=== PATIENT | female | born 1995 | race Two or more races ===

== ENCOUNTER 2017-09-08 22:35 | Emergency (ER) | payer SELFPAY ==
[2017-09-08 22:41] VITALS: RESP 18; TEMP 98.6
[2017-09-08] MEDS ORDERED: IPRATROPIUM/ALBUTEROL 3 ML DEYVIAL IH ONE (23:01)
--- NOTE | 2017-09-08 23:04 | EDPHY ---
H & P Stated Complaint: c/o cough/cold sx x 7 days, most sx dissipated, cough getting worse Time Seen by Provider: 09/08/17 22:56 HPI/ROS: Chief Complaint: Cough HPI: 21-year-old woman whose had 7 days of cough which is not improving. Patient states that it started as a regular cold with cough, congestion, fevers and chills. Fever. Five days ago. She has had a persistent dry cough since that time. She has been taking [id number] cough medicines without any relief. No recurrent fevers or chills. No nausea or vomiting. Cough is dry nonproductive. No headache. Some nasal congestion. She has also lost her voice. No associated shortness of breath. No abdominal pain. ROS: 10 point Review of Systems is negative except as noted in the HPI. PMH: None Social History: No smoking, occasional alcohol, no recreational drug use Family History: non-contributory Physical Exam: Gen: Awake, Alert, No Distress HEENT: Nose: no rhinorrhea Eyes: PERRLA, EOMI Mouth: Moist mucosa Neck: Supple, no JVD Chest: nontender, no focal rales or rhonchi, prolonged expiratory phase with wheezing associated with dry cough Heart: S1, S2 normal, no murmur Abd: Soft, non-tender, no guarding Back: no CVA tenderness, no midline tenderness Ext: no edema, non-tender Skin: no rash Neuro: CN II-XII intact, Sensation grossly intact, Strength 5/5 in bilateral upper and lower extremities - Medical/Surgical History Hx Asthma: No Hx Chronic Respiratory Disease: No Hx Diabetes: No Hx Cardiac Disease: No Hx Renal Disease: No Hx Cirrhosis: No Hx Alcoholism: No Hx HIV/AIDS: No Hx Splenectomy or Spleen Trauma: No Other PMH: None - Social History Smoking Status: Never smoked Constitutional: Initial Vital Signs Temperature (C) 37 C 09/08/17 22:38 Heart Rate 121 H 09/08/17 22:38 Respiratory Rate 18 09/08/17 22:38 Blood Pressure 142/83 H 09/08/17 22:38 O2 Sat (%) 95 09/08/17 22:38 O2 Delivery Mode Room Air Allergies/Adverse Reactions: No Known Allergies Allergy (Unverified 09/08/17 22:41) Home Medications: Medication Instructions Recorded Nyqucarmen 09/08/17 Louieitussin 09/08/17 Benzonatate [Tessalon Pearles (RX)] 100 mg PO TID PRN #12 cap 09/09/17 Medical Decision Making ED Course/Re-evaluation: With dry nonproductive cough with some mild wheeze. She has no clinical findings suggestive of pneumonia. She is afebrile. She is moderately improved after being oral inhaler and Tessalon Perles. Will discharge with Tessalon albuterol. Referral for outpatient follow-up. - Data Points Medications Given: Discontinued Medications Albuterol/Ipratropium (Duoneb) 3 ml IH EDNOW ONE Stop: 09/08/17 23:02 Last Admin: 09/08/17 23:06 Dose: 3 ml Benzonatate (Tessalon Pearles) 100 mg PO EDNOW ONE Stop: 09/09/17 00:02 Last Admin: 09/09/17 00:06 Dose: 100 mg Departure - Departure Disposition: Home, Routine, Self-Care Clinical Impression: Acute bronchitis Condition: Good Instructions: Acute Bronchitis (ED), Bronchospasm (ED), Albuterol (By breathing ) Additional Instructions: Use the albuterol 2 puffs every 4 hr for the next 3 days. Always use a spacer with the albuterol inhaler. He may take Tessalon Perles as needed for cough. Follow up with primary care physician in 4 days for further evaluation. Return to the emergency department for increasing cough, worsening shortness of breath, fevers, chills, or any other concerns. Referrals: June Jain MD [Medical Doctor] - As per Instructions Prescriptions: Benzonatate [Tessalon Pearles (RX)] 100 mg PO TID PRN #12 cap PRN Reason: Cough, Moderate
[2017-09-09] MEDS ORDERED: BENZONATATE 100 MG CAP PO ONE (00:01)
[2017-09-09 00:05] VITALS: BP 151/94
[2017-09-09 00:24] VITALS: PULSE 106; O2SAT 95
[2017-09-09] MEDS ORDERED: ALBUTEROL INH PREPACK MDI TAKEHOME ONE (00:27)
== END 2017-09-09 00:43 | disposition home or self-care (01) ==
DX: J20.9 Acute bronchitis, unspecified (principal)